=== PATIENT | female | born 1960 | race Caucasian/White ===

== ENCOUNTER 2017-04-30 05:48 | Inpatient (IN) | payer OTHER ==
[2017-04-30] VITALS (13 sets, daily range): BP systolic 95–119; BP diastolic 55–73; PULSE 58–82; RESP 9–18; O2SAT 95–100
[~2017-04-30] VITALS: Ht 175.3 cm; Wt 90.0 kg
[~2017-04-30 05:48] MED LIST: ASPI-973 PO; Bupivacaine Liposome 1.3% 20 mL Inj INFILTRATE ONE; CALC-243 PO; CeFAZolin Inj 2 GM in IV Premix 1 EACH IV ONE; ESTR0.5T; LEVO50TA39 PO; MELO-253 PO; MULT-1018 PO; Vancomycin Inj 1,250 MG in 0.9% Sodium Chloride 250 ML IV ONE
[2017-04-30] MEDS ORDERED: CeFAZolin 2 Gm/50 mL D5W Duplex Bag IV ONE (06:12)
[2017-04-30] MEDS ORDERED: Lactated Ringer's 1,000 ML IV ONE (06:24)
[2017-04-30] MEDS ORDERED: 0.9% Sodium Chloride 100 ML ONE (07:19)
[2017-04-30] MEDS ORDERED: Tranexamic Acid 100 mg/mL 10 mL Inj ONE (07:19)
--- NOTE | 2017-04-30 07:27 | PCM.HPANE ---
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 Admitting Provider: Attending Provider:Fady Headley DO Primary Care Physician:Yessenia Mercado Other Provider:Yossi Chu Anesthesia Reason for Visit Left Hip Arthritis LEFT HIP ARTHRITIS Ht/WT & BMI Height (Feet): 5 Height (Inches): 9 Weight (Kilograms): 90 Body Mass Index 29.00 Allergies Coded Allergies: codeine (Verified Allergy, Unknown, Headache, 05/26/13) naproxen (Verified Allergy, Unknown, upset stomach, 05/26/13) Past Anesthesia History Anesthesia History: Positive for:: Anesthesia Reactions (nauseated), Denies:: Abnormal Airway, Difficult Intubation, Fam Anesthesia Reaction, Fam Malignant Hypertherm, Malignant Hyperthermia Diabetes History Hx Diabetes?: No MRSA MRSA: No Medications Blood Thinner: Aspirin Hypertension Medication: No Home Meds Incl Beta Greyson: No Reported Medications Multivitamin (Multi Vitamin Daily)1 Each Tablet1 Each PO DAILY 30 Days Ref 0 04/20/17 Levothyroxine (Levoxyl)50 Mcg [id number] Mcg PO DAILY Ref 0 04/20/17 Estradiol 0.5 Mg Tablet0.5 Mg DAILY 04/20/17 Calcium Carbonate/Vitamin D3 (Calcium 600 + Vit D Tablet)1 Each Tablet1 Each PO DAILY 04/20/17 Aspirin 81 Mg [id number] Mg PO DAILY Ref 0 04/20/17 Discontinued Reported Medications Meloxicam 15 Mg [id number] Mg PO DAILY 30 Days Ref 0 04/20/17 History History of ENT Problems?: No HEENT History: Denies:: Abnormal Airway Cataracts Difficult Intubation Glaucoma Hearing Problem Denture Type: None Teeth Condition: Within Normal Limits Hx of Heart Problems?: No Cardiovascular History: Denies:: AICD Abdominal Aortic Aneurism Atrial Fibrillation Chest Pain Edema Heart Murmur Hypertension Irregular Heartbeat Pacemaker Peripheral Vascular Rheumatic Fever Other Cardiac History: hx of work up for dizziness [address] Campbell- determined to be non cardiac in nature Hx of Respiratory Problem?: No Respiratory History: Denies:: Asthma COPD Emphysema Oxygen Administration Pneumonia Tuberculosis Use of C-PAP Machine Hx Neurologic Problems?: No Neurological History: Denies:: CVA Headaches Multiple Sclerosis Parkinson's Disease Peripheral Neuropathy Seizures Hx of GI Problems?: No Gastrointestinal History: Denies:: Gastroesphageal Reflux Hepatitis Liver Disease Hx of Problems?: No Genitourinary History: Denies:: Kidney Stones Urinary Tract Infection Female Hx: Denies:: Currently Problems with Breasts? Skin History: Denies:: History Skin Disorders? Pressure Ulcers Hx Musculoskeletal Problems?: Yes Musculoskeletal History: Positive for:: Degenerative Joint Musculoskeletal Trauma (left hip current admission problem) Osteoarthritis Denies:: Back Injury Fibromyalgia Joint Replacement Myasthenia Gravis Systemic Lupus Hx of Psycho/Social Problems?: No Psycho Social History: Denies:: Anxiety Hx Depression Hx Surgeries?: Yes (hyterectomy,ovarian cyst removed,knee) Hx Any Other Health Problems?: Yes Other History: Positive for:: Thyroid Disease ( on rx) Denies:: Cancer History Blood Transfusions: Positive for:: Accept Blood Products? Denies:: Blood Transfusions Hx Diabetes: No Hx Alcohol Use: YesAlcoholic Drinks Per Day: 3-4 drinks weeklyHx Substance Use : NoHave You Smoked inLast 12 mo: No Stop/Bang P-Blood Pressure: treated: No B- Body Mass Index > 35 kg/m2: No A- Age over 50: Yes N- Neck Large Circumference: No G- Gender Male: No TORRIE Risk Assessment: Low Risk, <3 Yes Risk Assessment Category Category 1A: Patient has history of documented sleep apnea, and HAS NOT received any narcotic, sedative or anesthesia administration during this stay. Category 1B: Patient has history of documented sleep apnea, and HAS received any narcotic , sedative or anesthesia administration during this stay Category 2: Patient has SUSPECTED Obstructive Sleep Apnea, and HAS received any narcotic , sedative or anesthesia administration during this stay. Category 3: Patient has SUSPECTED Obstructive Sleep Apnea and HAS NOT received narcotic, sedative or anesthesia administration during this stay. Category 4: Outpatient in Procedural Areas with known sleep apnea or who screen positive for High Risk via the STOP/BANG questionnaire. Exam Exam Vital Signs Vital Signs Date Time Temp Pulse Resp B/P Pulse Ox O2 Delivery O2 Flow Rate FiO2 04/30/17 06:24 36.1 58 16 117/71 97 Room Air General Appearance: Alert, Oriented X3, Cooperative, No Acute Distress HEENT/AIRWAY: MP 2 Lungs: Clear to Auscultation, Normal Air Movement Heart: Exam Unremarkable, Regular Rate/Rhythm, No Murmurs/Rubs/Gallops Meds/Labs/Diagnostics Admission Meds Current Medications Vancomycin HCl 1250 mg/Sodium Chloride 250 ml @ 166.667 mls/hr 01 ONCE IV Last administered on 04/30/17 06:23; Start 04/30/17 at 01:00; Stop 04/30/17 at 02:29; Status DC Lactated Ringer's (Lr) 1,000 ml @ ud STK-MED ONCE IV Last administered on 04/30 06:24; Start 04/30/17 at 06:24; Stop 04/30/17 at 06:25; Status DC Plan Impression Patient chart reviewed, patient interviewed and anesthestic plan with risks, benefits, and alternatives discussed, and informed consent obtained. NPO per Anesth. Guidelines: Yes ASA Physical Status: ASA2 Mod Systemic Disease Bene/Risks/Altern/Consents: Yes (Offered spinal, pt preferred GA) HP Complete Prior to Induction: Yes Fady Jennings MD Apr 30, 2017 07:27
[2017-04-30] MEDS ORDERED: Promethazine 25 mg/mL Inj IM PRN (08:25)
[2017-04-30] MEDS ORDERED: Phenylephrine 10,000 mCg/mL Inj IVPUSH PRN (08:25)
[2017-04-30] MEDS ORDERED: Lactated Ringer's 500 ML IV PRN (08:25)
[2017-04-30] MEDS ORDERED: Lactated Ringer's 1,000 ML IV SCH (08:25)
[2017-04-30] MEDS ORDERED: Ondansetron 2 mg/mL 2 mL Inj IVPUSH PRN ×2 (08:25→10:35)
[2017-04-30] MEDS ORDERED: fentaNYL-PF 50 mCg/mL 2 mL Inj IVPUSH PRN (08:25)
[2017-04-30] MEDS ORDERED: MetoCLOpramide 5 mg/mL 2 mL Inj IVPUSH PRN (08:25)
[2017-04-30] MEDS ORDERED: EPHEDrine Sulfate 50 mg/mL Inj IVPUSH PRN (08:25)
[2017-04-30] MEDS ORDERED: Ropivacaine-PF 0.5% 30 mL Inj INFILTRATE ONE (08:42)
[2017-04-30] MEDS ORDERED: hydrOXYzine Pamoate 25 mg Capsule PO PRN (10:35)
[2017-04-30] MEDS ORDERED: Acetaminophen IV 1,000 MG in IV Premix 1 EACH IV ONE (10:35)
[2017-04-30] MEDS ORDERED: Polyethylene Glycol (PEG) 17 Gm Powder PO PRN (10:35)
[2017-04-30] MEDS ORDERED: Magnesium Hydroxide 10 mL Oral Concentration PO PRN (10:35)
[2017-04-30] MEDS ORDERED: diphenhydrAMINE 25 mg Capsule PO PRN (10:35)
[2017-04-30] MEDS: HYDROmorphone 1 mg/mL Inj IVPUSH PRN ×2 (10:37→11:08)
--- NOTE | 2017-04-30 11:07 | DRSVH ---
PROCEDURE: X-RAY PELVIS W/LAT HIP (LT) ([id number]) INDICATIONS: post op TECHNIQUE: AP pelvis and lateral view of the left hip acquired. COMPARISON: 03/19/2017 FINDINGS: Bones: Patient is status post left hip arthroplasty, with hardware components in expected positions. The hip joint appears congruent. The visualized bony structures appear intact. Soft tissues: Overlying postoperative changes are noted. No suspicious soft tissue densities. Surgi rose marie clips overlie the right lower quadrant. IMPRESSION: 1. Postoperative changes of total left hip arthroplasty. No apparent complication. Dictated by: Luis Helm M.D. on 04/30/2017 at 11:04 Approved by: Luis Helm M.D. on 04/30/2017 at 11:06
--- NOTE | 2017-04-30 11:22 | OP ---
[address] [address] OPERATIVE REPORT PATIENT: KEKE MONTILLA : 1960 MR#: [id number] ADMIT: 04/30/2017 JOB ID: [id number] DATE OF SURGERY: 04/30/2017 PREOPERATIVE DIAGNOSIS(ES): Left hip degenerative joint disease. POSTOPERATIVE DIAGNOSIS(ES): Left hip degenerative joint disease. PROCEDURE: Left direct anterior total hip arthroplasty. SURGEON: Fady Headley DO DIVINE HEALER: MD Renee Petersen PA-C INDICATIONS: The patient is a 56-year-old female with left hip severe degenerative arthritis who has failed conservative measures and wished to proceed with a left total hip arthroplasty. We discussed treatment options and she wished to proceed with a direct anterior approach. We discussed risks, benefits, and possible complications of surgery including, but not limited to, injury to nerves and vessels, infection, bleeding, incomplete relief of symptoms, stiffness, need for additional procedures. The patient had good understanding. All questions were answered. She wished to proceed. PROCEDURE IN DETAIL: The patient is brought to the operating room. She was given a preoperative antibiotic and general anesthetic. The left hip was sterilely prepped and draped and an incision was made about 1 cm distal and 3 cm lateral to the ASIS overlying the TFL. Muscle belly dissection was carefully carried through the subcutaneous tissue and the fascia was then encountered. An incision was made in the fascia and then the plane between the sartorius and TFL was utilized. Blunt finger dissection was used to peel off into the tissue plane. Retractors were then placed and the circumflex vessels were then identified and tied with suture ligatures, and then released with Bovie. Next, the rectus was elevated off of the anterior femoral neck and a T-shaped capsulotomy was performed over the intertrochanteric line. Tack stitches were placed into the leaves of the capsule and a provisional neck cut was outlined with a C-arm and then performed. The femoral head was then removed and the acetabulum was then addressed. The labrum and pulvinar were removed and the acetabulum was reamed sequentially up to a 47 for a 48 cup. Care was taken to ensure the appropriate abduction and anteversion, and the 48 DePuy pinnacle cup was impacted into position, further secured with a single superior dome screw, which had good fixation. I elected to use a 32+4 liner, as I was concerned about the thin poly with the 32 neutral liner. The poly was impacted into position and the femur was addressed. We did release off of the lateral soft tissues as the femur was externally rotated and dropped the foot. We used the box osteotome and then broached sequentially up to a size 4, which had excellent fit and fill. A calcar planer was used to smooth the top of the femur and a four broach was inserted. The hip was reduced. It felt to be slightly long, but the four seemed to fit quite nicely. Therefore, I went down to the three and tried to sink the broach a bit further, which I did, and then placed the DePuy Tri-Lock size four standard stem with a 32+1 ceramic head. The hip reduced nicely, had excellent range of motion, great stability, good leg lengths. The wound was irrigated and then closed with Surgilon to repair the capsule. The fascia overlying the TFL was repaired with 0-Vicryl. The subcu was closed with 2-0 Vicryl. The skin was closed with a running subcuticular 4-0 Monocryl. Naropin was added as an adjunct local anesthetic. Sterile dressings were applied. The patient tolerated the procedure well. Blood loss was 200 cc. POSTOPERATIVE PROTOCOL: Have the patient weightbear to tolerance using a walker or cane for the 1st month. We plan to use aspirin for DVT prophylaxis for six weeks postoperatively, and Percocet for pain.
--- NOTE | 2017-04-30 12:00 | NUR ---
Arrival to [facility] RM 1001 Pt arrived to [facility] Rm 1001; post op L total hip anterior approach. A&Ox3; IV NS to infuse 100mls/hr; water weight applied to L hip to remain in place for 24 hours, can come off for PT and bathroom privileges. Sensation to L foot and able to move toes, ppp bilaterally. at bedside. Care ongoing. Addendum: 04/30/17 at 1744 by MYLES ELENA RN Pt VSS, RA, SPO2 mid to high 90's; dressing CDI.
--- NOTE | 2017-04-30 12:51 | PCM.ANEP1 ---
Post Anesthesia PACU Phase 1 Assessment Vital Signs Vital Signs Date Time Temp Pulse Resp B/P Pulse Ox O2 Delivery O2 Flow Rate FiO2 04/30/17 11:59 36.7 79 18 114/68 99 Room Air 04/30/17 11:45 76 16 109/63 95 Room Air 04/30/17 11:30 36.8 67 9 109/63 96 Room Air 04/30/17 11:15 68 10 110/62 97 Room Air 04/30/17 11:00 71 13 119/65 98 Room Air 04/30/17 10:50 73 14 115/73 97 Room Air 04/30/17 10:45 68 11 112/63 98 Room Air 04/30/17 10:40 71 15 116/69 99 Room Air 04/30/17 10:35 72 12 109/62 100 Room Air 04/30/17 10:31 36.6 74 12 107/68 100 Simple Mask 8 04/30/17 06:24 36.1 58 16 117/71 97 Room Air Anesthetic Administered: GA Level of Alertness: Awake, talking Pain: Yes (6) Pain Scale Score: 6 Nausea or Vomiting: No CV Function & Hydration Stable: Yes Airway Device: Oxygen Delivery: Room Air Lungs: Clear to Auscultation, Normal Air Movement PACU Phase 2 Assessment Complications: No Follow up Care: No Patient Instructions Provided: Yes Fady Jennings MD Apr 30, 2017 12:51
[2017-04-30] MEDS: 0.9% Sodium Chloride 1,000 ML IV SCH ×2 (13:05→19:37)
[2017-04-30] MEDS: oxyCODONE-Acetamin 5-325 mg Tablet PO PRN ×2 (13:51→19:41)
[2017-04-30] MEDS ORDERED: EPHEDrine/NS 5 mg/mL 5 mL Syringe ONE (13:59)
[2017-04-30] MEDS ORDERED: Ondansetron 2 mg/mL 2 mL Inj ONE (13:59)
[2017-04-30] MEDS ORDERED: Ketamine 10 mg/mL 20 mL Inj ONE (13:59)
[2017-04-30] MEDS ORDERED: Propofol 10,000 mCg/mL 20 mL Inj ONE (13:59)
[2017-04-30] MEDS ORDERED: fentaNYL-PF 50 mCg/mL 2 mL Inj ONE (13:59)
[2017-04-30] MEDS ORDERED: Glycopyrrolate 0.2 MG/ML 1mL Inj ONE (13:59)
[2017-04-30] MEDS ORDERED: Rocuronium 10 mg/mL 5 mL Inj ONE (13:59)
[2017-04-30] MEDS ORDERED: Neostigmine 1 mg/mL 10 mL Inj ONE (13:59)
[2017-04-30] MEDS ORDERED: HYDROmorphone 0.5 mg/0.5 mL iSecure Syringe IVPUSH PRN (16:10)
--- NOTE | 2017-04-30 16:19 | NUR ---
Evaluation completed. Please go to "Notes" then click on "Assessments and Notes" (bottom left corner of screen). Then select appropriate discipline tab on top of screen.
[2017-04-30] MEDS ORDERED: CeFAZolin Inj 2 GM in IV Premix 1 EACH IV SCH (16:30)
[2017-04-30] MEDS: Sodium Chloride LOK Flush 10 mL Syringe IV SCH (17:04)
[2017-04-30] MEDS: CeFAZolin Inj 2 GM in IV Premix 1 EACH IV SCH (17:05)
--- NOTE | 2017-04-30 17:43 | NUR ---
Pain Pt c/o pain today 02/26; IV Tylenol given with 5mg PO Percocet. Per pt effective and pain at 4/10 level and tolerable. Care ongoing.
[2017-04-30] MEDS: Senna-Docusate 8.6-50 mg Tablet PO SCH (19:41)
[2017-05-01] MEDS: oxyCODONE-Acetamin 5-325 mg Tablet PO PRN ×3 (00:41→08:57)
[2017-05-01] MEDS: Sodium Chloride LOK Flush 10 mL Syringe IV SCH ×2 (00:41→08:55)
[2017-05-01] MEDS: CeFAZolin Inj 2 GM in IV Premix 1 EACH IV SCH (00:42)
[2017-05-01 01:06] VITALS: BP 95/61; PULSE 65; RESP 18; O2SAT 99
--- NOTE | 2017-05-01 02:27 | NUR ---
Activity/Pain Patient getting up to BR with SBA using FWW. Gait steady. Denies lightheadedness/dizziness. Rating pain around 4-5/10 to left hip. States she feels the meds from surgery starting to wear off. Receiving Percocet two tabs PO for pain management with effective results.
[2017-05-01] MEDS ORDERED: Lactated Ringer's 1,000 ML IV ONE (05:00)
[2017-05-01 05:42] LABS: BASOPHILS % (AUTO) 0.2 % (0-3); EOSINOPHILS % (AUTO) 0.5 % (0-5); Mean Corpuscular Hemoglobin 29.2 pg (27.0-35.0); Platelet Count 251 bil/L (150-400)
[2017-05-01 05:50] VITALS: BP 92/58; PULSE 58; RESP 18; O2SAT 97
[2017-05-01] MEDS: 0.9% Sodium Chloride 1,000 ML IV SCH (06:19)
[2017-05-01] MEDS ORDERED: Magnesium Hydroxide 10 mL Oral Concentration PO PRN (06:41)
--- NOTE | 2017-05-01 08:37 | PCM.PNORTH ---
Subjective Date of Service: May 01, 2017 Visit Information: Reason for Visit Left Hip Arthritis Surgery/Surgery Date L ANTERIOR OLAMIDE 04/30/17 Post-Op Day # 1 Date of Admission: Apr 30, 2017 at 11:56 Hospital Day # Subjective Patient states her pain is well controlled. She states she was up with PT yesterday and has been "up to use the bathroom like 6-7 times." She states that she feels very stable when ambulating with a walker her only concern is the four steps to get into her home. She would like to work with therapy this morning on proper technique for getting up and down stairs. Postop General: No Complaints, No Shortness of Breath, No Chest Pain, Good Appetite Pain Management: PO Objective Exam Objective Patient sitting up in bed eating breakfast Vital Signs and I/O Vital Sign - Last Date Time Temp Pulse Resp B/P Pulse Ox O2 Delivery O2 Flow Rate FiO2 05/01/17 05:50 36.9 58 18 92/58 97 Room Air 04/30/17 10:31 8 Intake and Output 04/30/17 04/30/17 05/01/17 Cumulative From/Thru 15:00 23:00 07:00 04/20/17 10:06 - 05/01/17 05:50 Intake Total 1920 ml 300 ml 1338 ml 3808 ml Output Total 600 ml 1700 ml 2300 ml Balance 1920 ml -300 ml -362 ml 1508 ml Intake Oral 300 ml 520 ml 820 ml IV Total 1920 ml 818 ml 2988 ml Output Urine Total 600 ml 1700 ml 2300 ml # Bowel Movements 0 0 Lab & Micro Results Laboratory Tests Test 05/01/17 04:42 White Blood Count 10.7th/mm3 (3.8-10.1) Red Blood Count 3.36mil/mm3 (3.90-5.20) Hemoglobin 9.8g/dL (12.0-15.6) Hematocrit 30.9% (35.0-46.0) Mean Corpuscular Volume 92.0fL (81-100) Mean Corpuscular Hemoglobin 29.2pg (27.0-35.0) Mean Corpuscular Hemoglobin Concent 31.7% (32.0-37.0) Red Cell Distribution Width 13.6% (12.3-15.4) Platelet Count 251bil/L (150-400) Neutrophils (%) (Auto) 68.0% (40-74) Lymphocytes (%) (Auto) 21.1% (14-46) Monocytes (%) (Auto) 10.0% (4-12) Eosinophils (%) (Auto) 0.5% (0-5) Basophils (%) (Auto) 0.2% (0-3) Sodium Level 142mEq/L (134-144) Potassium Level 4.3mEq/L (3.5-5.2) Chloride Level 106mEq/L (97-108) Carbon Dioxide Level 25mmol/L (18-29) Blood Urea Nitrogen 9mg/dL (6-24) Creatinine 0.66mg/dL (0.57-1.00) Estimat Glomerular Filtration Rate 133mL/min (>59) Glucose Level 104mg/dL (60-99) Calcium Level 8.8mg/dL (8.5-10.1) Result Diagram: 05/01/1744105/01/17441 General Appearance: Alert, Oriented X3, Cooperative, No Acute Distress Extremities: Distal Pulses Palpable, No Compartment Syndrom Noted Postop Sensory Motor: Distal Motor Intact, Movement in Toes, Distal Sensation Intact, NVI Distally SURGICAL WOUND : Wound Location/Description Dressing c/d/i Incision General Appearance: No Direct Observation Dressing & Drainage Status: Intact Activity: Ambulate with PT Assessment & Plan Impression Postop day #1 left anterior total hip arthroplasty Problems: Plan Weightbearing: Weightbearing as tolerated with wheeled walker DVT prophylaxis: Aspirin 325 mg twice a day 6 weeks Physical therapy for transfers, progressive ambulation, strengthening Wound care: Perioperative dressing may be removed tomorrow. Patient has an island dressing at home that she may use over incision. Shower instructions: If incision is dry, absent drainage, patient may shower with incision uncovered beginning tomorrow. Analgesia: Percocet 5/325 mg tablet every 4 hours as needed for severe pain. Vistaril (hydroxyzine pamoate) 25 mg as needed for discomfort/spasms. Discharge plan: Discharge home today. Follow-up plan: In 2 weeks at [facility] with YAMILEX for wound check and at [address] Headley with x-rays Renee Wilson PA-C May 01, 2017 08:37
--- NOTE | 2017-05-01 08:40 | PCM.DIORTH ---
Ortho Discharge Instruction Date of Service: May 01, 2017 Dates of Hospitalization Date of Hospital Admission Apr 30, 2017 at 11:56 Providers Admitting Physician: Fady Headley DO Primary Care Physician: Yessenia Mercado Attending Physician: Fady Headley DO Diet Discharge Diet: No restrictions Activity Discharge Activity-General: Try not to overdue, Be up and about, Ice incision 3 -5 time/day for 20min Left Lower Extremity: Weight Bearing as tolerated Discharge Assist Device: Front Wheeled Walker Dressing and Incisional Care Discharge Dressing Care: Allow Steri Stripes to fall off Discharge Hygiene: DO NOT soak incision under water, NO bathtub, hot tub or whirlpool Additional Instructions Discharge Instructions Weightbearing: Weightbearing as tolerated with wheeled walker DVT prophylaxis: Aspirin 325 mg twice a day 6 weeks. Wear compression stockings bilaterally until 2 week follow up visit. Wound care: Bulky dressing may be removed tomorrow. Patient has an island dressing at home that she may use over incision. Shower instructions: If incision is dry, absent drainage, patient may shower with incision uncovered beginning tomorrow. Analgesia: Percocet 5/325 mg tablet every 4 hours as needed for severe pain. Vistaril (hydroxyzine pamoate) 25 mg as needed for discomfort/spasms. Discharge plan: Discharge home today. Follow-up plan: In 2 weeks at [facility] with YAMILEX for wound check and at [address] Headley with x-rays Renee Wilson PA-C May 01, 2017 08:40
[2017-05-01] MEDS ORDERED: HYDR-3797 PO (08:42)
[2017-05-01] MEDS ORDERED: OXYC1TAB24 PO (08:42)
[2017-05-01] MEDS ORDERED: ASPI325T32 PO (08:42)
[2017-05-01] MEDS: Senna-Docusate 8.6-50 mg Tablet PO SCH (08:54)
--- NOTE | 2017-05-01 08:57 | NUR ---
Social Work: Initial Assessment/Readiness for D/C D: EMR reviewed. Please see Initial Assessment linked to this note for more information. Pt is a 56 year old female admitted [place] for elective left hip replacement per H&P. Pt's insurance is [facility]. PCP is BEENA Mccabe. Pt is POD 1. Pt is likely to discharge home today, no needs. PT to evaluate pt today. No anticipated d/c needs. SW met with pt at bedside to conduct initial assessment. Pt was alert and oriented x3. SW explained role and wrote phone number on white board. SW provided [facility] Discharge Planning Checklist and encouraged pt to contact SW for any discharge planning questions. Pt lives at home with her spouse in [place]. Pt is independent with all ADLs at baseline. Pt uses no DME at baseline, but has a cane and walker available for use at discharge. Pt drives. Pt has no HH or SNF history. Pt has no LTC or VA benefits. Pt has DPOA on file. Pt is likely to d/c home with to transport via POV. SW will continue to follow. A: Pt who is independent at baseline and has the capacity for self-care. P: Pt anticipated to discharge home with to transport via POV. No SW needs identified, no MD orders received at this time. PT to evaluate pt. SW will continue to follow for needs until time of discharge. DEJUAN Chang Addendum: 05/01/17 at 0901 by AKILA DURON SS Amended: Links added.
--- NOTE | 2017-05-01 11:07 | NUR ---
Evaluation completed. Please go to "Notes" then click on "Assessments and Notes" (bottom left corner of screen). Then select appropriate discipline tab on top of screen.
--- NOTE | 2017-05-01 11:26 | NUR ---
Social Work- Discharge Data: EMR reviewed. Pt to discharge today. Discharge orders are active. Pt has all necessary DME at home. Pt has been cleared for home by PT. Pt to d/c home with to transport via POV. No discharge needs. Assessment: Pt who is independent with ADLs and self-care at baseline. Plan: Pt to d/c home with to transport via POV. No discharge needs. DEJUAN Chang
[2017-05-01 12:16] VITALS: BP 99/52; PULSE 69; RESP 20; O2SAT 98
--- NOTE | 2017-05-01 13:50 | NUR ---
Thigh high stockings, Discharge Bilateral thigh high stockings applied to patient per orders. Orders for discharge were received. The patient was made aware of the plans for discharge and was agreeable to go. The patient was given teaching as well as physical handouts on her diagnosis and treatment, signs and symptoms to be aware of, follow up instructions, wound dressing care, scripts for new medications as well as teaching on those specific medications. The patient signified understanding of this information, verified using the teach back method. The patient's asymptomatic IV was then removed intact and was dressed in her own clothing. The patient's belongings were gathered and patient denied any belongings in the hospital safe or pharmacy. The patient then ambulated into a wheelchair, which took her to the main entrance where she entered a private family vehicle. At the time of discharge the patient was alert and oriented, with no complaint of shortness of breath, chest pain, nausea or other difficulty, with her surgical dressing clean, dry and intact and with CSM intact to all extremities.
== END 2017-05-01 14:00 | disposition home or self-care (01) | DRG 470 ==
LOC: SAS 05:48 → OSC 11:56
PROVIDERS: ADMIT Orthopaedic Surgery; ATTEND Orthopaedic Surgery
PROC: 0SRB049 Replacement of Left Hip Joint with Ceramic on Polyethylene Synthetic Substitute, Cemented, Open Approach (ICD-10-PCS; principal; 2017-04-30 07:30)
DX: M16.12 Unilateral primary osteoarthritis, left hip (principal); Z79.82 Long term (current) use of aspirin